=== PATIENT | male | born 1935 | race Caucasian/White ===

== ENCOUNTER 2019-08-15 09:35 | Outpatient (CLI) | payer MEDICARE | END 2019-08-15 23:59 | disposition home or self-care (01) | LOC: ROC 09:35 | PROVIDERS: ATTEND Radiology Radiation Oncology | DX: C34.11 Malignant neoplasm of upper lobe, right bronchus or lung (principal); Z87.891 Personal history of nicotine dependence | CPT/HCPCS: 99214; G0463 ==

== ENCOUNTER 2019-11-15 10:46 | Inpatient (IN) | payer MEDICARE ==
[~2019-11-15] VITALS: Ht 177.8 cm; Wt 82.4 kg
[2019-11-15 10:58] VITALS: BP 100/60
[2019-11-15] MEDS ORDERED: OMEP-110 PO (11:12)
[2019-11-15] MEDS ORDERED: METF500T17 PO (11:12)
[2019-11-15] MEDS ORDERED: PRED20TA PO (11:12)
[2019-11-15] MEDS ORDERED: ALLO300T PO (11:12)
[2019-11-15] MEDS ORDERED: CHLO25TA PO (11:12)
[2019-11-15] MEDS ORDERED: LISI-167 PO (11:12)
[2019-11-15] MEDS ORDERED: FOLI-17 PO (11:12)
[2019-11-15 11:43] LABS: ALBUMIN 3.3 g/dL (3.4-5.0); ANION GAP 5 mmol/L (5-15); CALCIUM 8.8 mg/dL (8.5-10.1); CHLORIDE 106 mmol/L (98-107)
[2019-11-15 11:47] LABS: ALANINE AMINOTRANSFERASE 13 U/L (12-78); ALKALINE PHOSPHATASE 80 U/L (45-117); BILIRUBIN,TOTAL 2.5 mg/dL (0.2-1.0); CREATININE 1.34 mg/dL (0.7-1.3); TOTAL PROTEIN 6.7 g/dL (6.4-8.2)
[2019-11-15 11:54] LABS: MEAN CORPUSCULAR HEMOGLOBIN 34.2 pg (27.5-34.5); MEAN CORPUSCULAR HGB CONC 33.8 g/dL (33.2-36.2); MEAN CORPUSCULAR VOLUME 101.2 fL (81-97); RED BLOOD COUNT 1.96 x10^6/uL (4.38-5.82); RED CELL DISTRIBUTION WIDTH 19.7 % (9.4-14.8)
[2019-11-15 11:58] LABS: HEMOGRAM NOTE RECHECKED
[2019-11-15 11:59] LABS: MEAN PLATELET VOLUME 7.9 fL (7.4-10.4); PLATELET COUNT 87 x10^3/uL (130-400)
[2019-11-15 12:00] LABS: MD YES
[2019-11-15 12:02] LABS: BAND#(MANUAL) 0.03 x10^3/uL; BANDS%(MANUAL) 1 % (0-7); LYMPH#(MANUAL) 0.47 x10^3/uL (1-3.4); LYMPHS% (MANUAL) 18 % (22-44); MONOS#(MANUAL) 0.13 x10^3/uL (0.3-2.7); MONOS% (MANUAL) 5 % (2-9); REACTIVE LYMPHS # (MANUAL) 0.05 x10^3/uL (0-0); REACTIVE LYMPHS % (MANUAL) 2 % (0-0); SEG#(MANUAL) 1.92 x10^3/uL (1.8-6.8); SEGS% (MANUAL) 74 % (42-75)
[2019-11-15 12:03] LABS: ANISOCYTOSIS 1+; OVALOCYTES 1+; ROULEAUX 1+
[2019-11-15 12:04] LABS: <PLATELET ESTIMATE> DECREASED; <PLT MORPHOLOGY> NORMAL PLT MORPH
[2019-11-15] MEDS ORDERED: DEXTROSE 50%, 50ML SYRINGE IVPush PRN (13:00)
[2019-11-15] MEDS ORDERED: DEXTROSE 4 GM TAB.CHEW PO PRN (13:00)
[2019-11-15] MEDS ORDERED: GLUCAGON 1 MG IM PRN (13:00)
[2019-11-15 13:54] VITALS: BP 119/66
[2019-11-15] MEDS ORDERED: DIPHENHYDRAMINE 50 MG CAPSULE PO PRN (14:00)
[2019-11-15] MEDS ORDERED: ACETAMINOPHEN 325 MG TABLET PO ONE (14:00)
[2019-11-15] MEDS ORDERED: MAGNESIUM SULFATE PMX 4GM/100M 100 ML IV ONE (14:30)
[2019-11-15] MEDS ORDERED: POLYETHYLENE GLYCOL 17 GM PACKET PO PRN (14:30)
[2019-11-15] MEDS ORDERED: ONDANSETRON 2MG/ML, 2ML IVPush PRN (14:30)
[2019-11-15] MEDS ORDERED: DOCUSATE 100 MG CAPSULE PO PRN (14:30)
[2019-11-15] MEDS ORDERED: BISACODYL 10 MG SUPP PR PRN (14:30)
[2019-11-15] MEDS ORDERED: ACETAMINOPHEN 325 MG TABLET PO PRN (14:30)
[2019-11-15] MEDS: APIXABAN 5 MG TABLET PO SCH ×2 (15:00→23:46)
[2019-11-15] MEDS: INSULIN LISPRO 100 UNITS/ML, PEN SQ-INSULIN SCH ×2 (15:28→21:46)
[2019-11-15 16:15] VITALS: BP 104/44
[2019-11-15 16:30] VITALS: BP 109/56
[2019-11-15 18:20] VITALS: BP 124/52
[2019-11-15 18:42] VITALS: BP 128/59
[2019-11-15] MEDS: SODIUM CHLORIDE FLUSH 10ML SYR IVF SCH (20:58)
[2019-11-15] MEDS ORDERED: APIXABAN 5 MG TABLET PO SCH (21:00)
[2019-11-15 23:01] LABS: ANION GAP 9 mmol/L (5-15); CHLORIDE 107 mmol/L (98-107)
[2019-11-16 00:07] VITALS: BP 130/86
[2019-11-16 06:16] LABS: CALCIUM 8.6 mg/dL (8.5-10.1); CHLORIDE 105 mmol/L (98-107)
[2019-11-16 06:36] LABS: MEAN CORPUSCULAR HEMOGLOBIN 33.5 pg (27.5-34.5); MEAN CORPUSCULAR HGB CONC 33.9 g/dL (33.2-36.2); MEAN PLATELET VOLUME 8.1 fL (7.4-10.4); PLATELET COUNT 93 x10^3/uL (130-400); RED BLOOD COUNT 2.42 x10^6/uL (4.38-5.82); RED CELL DISTRIBUTION WIDTH 20.1 % (9.4-14.8)
[2019-11-16 06:39] LABS: ALANINE AMINOTRANSFERASE 19 U/L (12-78); ALKALINE PHOSPHATASE 79 U/L (45-117); ANION GAP 8 mmol/L (5-15); BILIRUBIN, DIRECT 0.6 mg/dL (0.1-0.2)
[2019-11-16 06:40] LABS: TOTAL PROTEIN 6.7 g/dL (6.4-8.2)
[2019-11-16 07:27] LABS: BASOPHILS # (AUTO) 0.01 x10^3/uL (0-0.1); BASOPHILS % (AUTO) 0 % (0-1); EOSINOPHILS % (AUTO) 0 % (1-7); LYMPHOCYTES % (AUTO) 20 % (22-44); MD SCAN; MONOCYTES # (AUTO) 0.12 x10^3/uL (0.2-0.8); MONOCYTES % (AUTO) 5 % (2-9); NEUTROPHILS # (AUTO) 1.91 x10^3/uL (1.8-6.8); NEUTROPHILS % (AUTO) 75 % (42-75)
[2019-11-16] MEDS: APIXABAN 5 MG TABLET PO SCH ×2 (07:33→20:23)
[2019-11-16] MEDS: ALLOPURINOL 300 MG TABLET PO SCH (07:33)
[2019-11-16] MEDS: INSULIN LISPRO 100 UNITS/ML, PEN SQ-INSULIN SCH ×4 (07:33→20:29)
[2019-11-16] MEDS: OMEPRAZOLE 20 MG CAPSULE.DR PO SCH (07:33)
[2019-11-16] MEDS: FOLIC ACID 1 MG TABLET PO SCH (07:33)
[2019-11-16] MEDS: LISINOPRIL 10 MG TABLET PO SCH (07:34)
[2019-11-16] MEDS: SODIUM CHLORIDE FLUSH 10ML SYR IVF SCH ×2 (07:34→20:24)
[2019-11-16 08:02] VITALS: BP 132/47
[2019-11-16] MEDS ORDERED: DIPHENHYDRAMINE 50 MG/ML, 1ML IVPush ONE (09:00)
[2019-11-16] MEDS ORDERED: ACETAMINOPHEN 325 MG TABLET PO ONE (09:00)
[2019-11-16] MEDS ORDERED: RITUXIMAB 750 MG in SODIUM CHLORIDE 0.9% 250 ML IV ONE (09:30)
[2019-11-16 14:48] VITALS: BP 149/69
[2019-11-16 20:07] VITALS: BP 118/48
[2019-11-16] MEDS: metFORMIN 500 MG TABLET PO SCH (20:23)
[2019-11-17 01:07] VITALS: BP 131/53
[2019-11-17 05:22] LABS: MEAN CORPUSCULAR HEMOGLOBIN 33.8 pg (27.5-34.5); MEAN CORPUSCULAR HGB CONC 33.5 g/dL (33.2-36.2); MEAN CORPUSCULAR VOLUME 100.7 fL (81-97); MEAN PLATELET VOLUME 7.8 fL (7.4-10.4); PLATELET COUNT 101 x10^3/uL (130-400); RED BLOOD COUNT 2.36 x10^6/uL (4.38-5.82); RED CELL DISTRIBUTION WIDTH 19.4 % (9.4-14.8)
[2019-11-17 05:29] LABS: CHLORIDE 106 mmol/L (98-107)
[2019-11-17 05:35] LABS: ALANINE AMINOTRANSFERASE 13 U/L (12-78); ALBUMIN 3.1 g/dL (3.4-5.0); ALKALINE PHOSPHATASE 72 U/L (45-117); ANION GAP 7 mmol/L (5-15); BILIRUBIN,TOTAL 1.8 mg/dL (0.2-1.0); CALCIUM 8.7 mg/dL (8.5-10.1); CREATININE 0.94 mg/dL (0.7-1.3); TOTAL PROTEIN 6.6 g/dL (6.4-8.2)
[2019-11-17 06:11] LABS: BASOPHILS # (AUTO) 0.01 x10^3/uL (0-0.1); BASOPHILS % (AUTO) 0 % (0-1); EOSINOPHILS % (AUTO) 0 % (1-7); LYMPHOCYTES # (AUTO) 1.11 x10^3/uL (1-3.4); LYMPHOCYTES % (AUTO) 28 % (22-44); MD SCAN; MONOCYTES # (AUTO) 0.23 x10^3/uL (0.2-0.8); MONOCYTES % (AUTO) 6 % (2-9); NEUTROPHILS # (AUTO) 2.61 x10^3/uL (1.8-6.8); NEUTROPHILS % (AUTO) 66 % (42-75)
[2019-11-17] MEDS: INSULIN LISPRO 100 UNITS/ML, PEN SQ-INSULIN SCH ×2 (07:00→11:31)
[2019-11-17 07:32] VITALS: BP 122/61
[2019-11-17] MEDS: ALLOPURINOL 300 MG TABLET PO SCH (07:51)
[2019-11-17] MEDS: OMEPRAZOLE 20 MG CAPSULE.DR PO SCH (07:51)
[2019-11-17] MEDS: APIXABAN 5 MG TABLET PO SCH (07:52)
[2019-11-17] MEDS: metFORMIN 500 MG TABLET PO SCH (07:52)
[2019-11-17] MEDS: FOLIC ACID 1 MG TABLET PO SCH (07:52)
[2019-11-17] MEDS: LISINOPRIL 10 MG TABLET PO SCH (07:52)
[2019-11-17] MEDS: SODIUM CHLORIDE FLUSH 10ML SYR IVF SCH (07:53)
[2019-11-17] MEDS ORDERED: MAGNESIUM SULFATE PMX 2GM/50ML 50 ML IV ONE (09:00)
[2019-11-17] MEDS ORDERED: PRED20TA PO (11:17)
[2019-11-17] MEDS ORDERED: APIX5TAB PO (11:17)
[2019-11-17 12:41] VITALS: BP 118/63
== END 2019-11-17 13:45 | disposition home or self-care (01) | DRG 808 ==
LOC: 4NW 10:50
PROVIDERS: ADMIT Family Medicine; ATTEND Internal Medicine
PROC: 30233N1 Transfusion of Nonautologous Red Blood Cells into Peripheral Vein, Percutaneous Approach (ICD-10-PCS; principal; 2019-11-15)
DX: D59.1 Other autoimmune hemolytic anemias (principal); G93.41 Metabolic encephalopathy; N17.0 Acute kidney failure with tubular necrosis; D61.810 Antineoplastic chemotherapy induced pancytopenia; C90.00 Multiple myeloma not having achieved remission; I82.401 Acute embolism and thrombosis of unspecified deep veins of right lower extremity; C34.11 Malignant neoplasm of upper lobe, right bronchus or lung; E83.42 Hypomagnesemia; M10.9 Gout, unspecified; E11.9 Type 2 diabetes mellitus without complications; E87.5 Hyperkalemia; T45.1X5A Adverse effect of antineoplastic and immunosuppressive drugs, initial encounter; I10 Essential (primary) hypertension; Z87.891 Personal history of nicotine dependence; Z80.9 Family history of malignant neoplasm, unspecified; Z79.84 Long term (current) use of oral hypoglycemic drugs; Z79.01 Long term (current) use of anticoagulants
CPT/HCPCS: 36415; 70450; 80048; 80053; 82248; 82607; 82962; 83010; 83036; 83615; 83735; 84100; 84443; 85014; 85018; 85025; 86850; 86880; 86900; 86923; G0378; J1200; J1815; J3475; J7050; J7512; J9312; P9016

== ENCOUNTER → 2019-12-27 | Outpatient (CLI) | payer MEDICARE ==
[~2019-12-27] MED LIST: ALLO300T PO; APIX5TAB PO; CHLO25TA PO; FOLI-17 PO; LISI-167 PO; METF500T17 PO; OMEP-110 PO; PRED20TA PO
== END | disposition home or self-care (01) ==
LOC: ROC 07:26
PROVIDERS: ATTEND Radiology Radiation Oncology
DX: Z08 Encounter for follow-up examination after completed treatment for malignant neoplasm (principal); E11.9 Type 2 diabetes mellitus without complications; I10 Essential (primary) hypertension; Z85.118 Personal history of other malignant neoplasm of bronchus and lung; Z79.01 Long term (current) use of anticoagulants; Z79.84 Long term (current) use of oral hypoglycemic drugs; Z87.891 Personal history of nicotine dependence
CPT/HCPCS: 99213; G0463

== ENCOUNTER 2020-01-13 10:57 | Inpatient (IN) | payer MEDICARE ==
[~2020-01-13] VITALS: Ht 177.8 cm; Wt 81.0 kg
[2020-01-13] MEDS ORDERED: LENA10CA PO (11:18)
[2020-01-13] MEDS ORDERED: LORA10TA75 PO (11:18)
--- NOTE | 2020-01-13 11:19 | NUR ---
PATIENT BIB [facility] WITH CHIEF C/O DIZZINESS, FATIGUE, AND WEAKNESS. PATIENT HAD GLF YESTERDAY AT HOME AND HIT HIS RIGHT RIBS AND LEFT SIDE OF HEAD. PER PATIENT'S DAUGHTER AT BEDSIDE PATIENT HAD BLOODY NOSE ALL NIGHT. NO OTHER BLEEDING NOTED BY DAUGHTER. PER PATIENT'S DAUGHTER PATIENT HAS MULTIPLE MYELOMA AND STARTED NEW CHEMO MEDICATION LAST TUESDAY, AFTER WHICH PATIENT STARTED EXPERIENCING INCREASING DIZZINESS, WEAKNESS AND FATIGUE. PATIENTS DAUGHTER NOTICED THIS MORNING PATIENT WAS SLIGHTLY ALTERED. PATIENT HAS SMALL ABRASION ON LEFT EYEBROW. NO BRUSING ON RIGHT RIBS BUT VERY TENDER TO TOUCH. 20 GAUGE IV STARTED VIA [facility]. CONNECTED TO ANTENNA ENGINEER, NO SIGNS OF ACUTE DISTRESS. ERMD AT BEDSIDE FOR EVALUATION.
--- NOTE | 2020-01-13 11:20 | NUR ---
PATIENT TO IMAGING.
[2020-01-13] MEDS ORDERED: SODIUM CHLORIDE 0.9% 1,000ML IVBOLUS ONE ×2 (11:30→13:00)
[2020-01-13] MEDS ORDERED: SODIUM CHLORIDE FLUSH 10ML SYR IVF ONE (11:30)
--- NOTE | 2020-01-13 11:54 | NUR ---
PATIENT BACK FROM IMAGING, CONNECTED TO INSTRUMENT PANEL ASSEMBLER, NS BOLUS STARTED, PATIENT WILL TRY TO LEAVE URINE SAMPLE, CALL LIGHT WITHIN REACH.
--- NOTE | 2020-01-13 12:02 | NUR ---
URINE SAMPLE COLLECTED AND SENT TO LAB, PATIENT TO CT SCAN.
[2020-01-13 12:10] LABS: MICROSCOPIC NOT IND
[2020-01-13 12:17] LABS: MEAN CORPUSCULAR HEMOGLOBIN 32.7 pg (27.5-34.5); MEAN PLATELET VOLUME 8.7 fL (7.4-10.4); PLATELET COUNT 102 x10^3/uL (130-400); RED BLOOD COUNT 2.19 x10^6/uL (4.38-5.82)
[2020-01-13 12:20] LABS: INTERNATIONAL NORMALIZED RATIO 1.18 (0.93-1.1); PROTHROMBIN TIME 12.2 Seconds (9.6-11.5)
[2020-01-13 12:22] LABS: ALBUMIN 2.8 g/dL (3.4-5.0); ANION GAP 8 mmol/L (5-15); CALCIUM 8.3 mg/dL (8.5-10.1); CHLORIDE 101 mmol/L (98-107)
--- NOTE | 2020-01-13 12:22 | NUR ---
CRITICAL HCT OF 21.7 REPORTED TO PROVIDER, PATIENT RESTING IN GURNEY, SIDE RAILS UP X2, CONNECTED TO TOOL ROOM ATTENDANT, CALL LIGHT WITHIN REACH, NO SIGNS OF ACUTE DISTRESS.
[2020-01-13 12:25] LABS: AMPHETAMINE SCREEN, URINE Negative (Negative); BARBITURATE SCREEN, URINE Negative (Negative); BENZODIAZEPINE SCREEN, URINE Negative (Negative); CANNABINOID SCREEN, URINE Negative (Negative); COCAINE SCREEN, URINE Negative (Negative); METHADONE SCREEN, URINE Negative (Negative); OPIATE SCREEN, URINE Negative (Negative)
[2020-01-13 12:27] LABS: ALANINE AMINOTRANSFERASE 14 U/L (12-78); ALKALINE PHOSPHATASE 65 U/L (45-117); BILIRUBIN,TOTAL 2.2 mg/dL (0.2-1.0); CREATININE 2.06 mg/dL (0.7-1.3); TROPONIN I < 0.015 ng/mL (0.000-0.045)
[2020-01-13 12:28] LABS: SALICYLATE LEVEL < 1.7 mg/dL (2.8-20.0)
[2020-01-13 12:45] LABS: BASOPHILS # (AUTO) 0.02 x10^3/uL (0-0.1); BASOPHILS % (AUTO) 1 % (0-1); EOSINOPHILS % (AUTO) 0 % (1-7); LYMPHOCYTES # (AUTO) 0.64 x10^3/uL (1-3.4); LYMPHOCYTES % (AUTO) 21 % (22-44); MD SCAN; MONOCYTES # (AUTO) 0.07 x10^3/uL (0.2-0.8); MONOCYTES % (AUTO) 2 % (2-9); NEUTROPHILS # (AUTO) 2.35 x10^3/uL (1.8-6.8); NEUTROPHILS % (AUTO) 76 % (42-75)
--- NOTE | 2020-01-13 12:45 | NUR ---
FLIGHT CREW SCHEDULER AT BEDSIDE.
[2020-01-13] MEDS ORDERED: CEFTRIAXONE PMX 1GM/50ML 50 ML IV ONE (13:00)
[2020-01-13] MEDS ORDERED: CEFTRIAXONE PMX 1GM/50ML 50 ML ONE (13:12)
--- NOTE | 2020-01-13 13:35 | NUR ---
2nd 1 LITER BOLUS STARTED, CORIE DAVID. [facility] [place] AT BEDSIDE FOR EVALUATION.
[2020-01-13] MEDS ORDERED: ACETAMINOPHEN 325 MG TABLET PO PRN (14:30)
[2020-01-13] MEDS ORDERED: ONDANSETRON 2MG/ML, 2ML IVPush PRN (14:30)
[2020-01-13] MEDS ORDERED: ONDANSETRON ODT 4 MG PO PRN (14:30)
[2020-01-13 14:49] VITALS: BP 113/58
[2020-01-13] MEDS ORDERED: VANCOMYCIN PER PHARMACY MC PRN (15:00)
[2020-01-13] MEDS: LACTATED RINGERS 1,000 ML IV SCH (15:12)
--- NOTE | 2020-01-13 15:14 | NUR ---
LATE ENTRY: REPORT CALLED TO ALEX RICHARDS ON MEDICAL TELEMETRY.
--- NOTE | 2020-01-13 15:16 | NUR ---
PATIENT TRANSFERRED IN STABLE CONDITION VIA GURNEY TO MEDICAL TELEMETRY BY [employer] FEEDING MACHINE OPERATOR. ALL PATIENT BELONGINGS GATHERED BY PATIENT'S DAUGHTER AND TAKEN UP TO FLOOR.
[2020-01-13 15:35] VITALS: BP 93/53
[2020-01-13] MEDS: PIPERACILLIN/TAZO/PMX 2.25GM 50 ML IV SCH ×2 (18:09→23:49)
[2020-01-13 18:59] VITALS: BP 110/65
[2020-01-13] MEDS: LINEZOLID PMX 600MG/300ML 300 ML IV SCH (20:24)
[2020-01-14 01:04] VITALS: BP 114/63
[2020-01-14] MEDS: LACTATED RINGERS 1,000 ML IV SCH ×2 (02:55→10:56)
[2020-01-14 06:08] LABS: CHLORIDE 101 mmol/L (98-107)
[2020-01-14 06:12] LABS: ANION GAP 6 mmol/L (5-15); CALCIUM 8.3 mg/dL (8.5-10.1)
[2020-01-14 06:25] LABS: MD YES; MEAN CORPUSCULAR HEMOGLOBIN 31.8 pg (27.5-34.5); MEAN PLATELET VOLUME 9.3 fL (7.4-10.4); PLATELET COUNT 78 x10^3/uL (130-400); RED BLOOD COUNT 2.69 x10^6/uL (4.38-5.82); RED CELL DISTRIBUTION WIDTH 19.5 % (9.4-14.8)
[2020-01-14 06:28] LABS: BAND#(MANUAL) 0.15 x10^3/uL; BANDS%(MANUAL) 6 % (0-7); LYMPH#(MANUAL) 0.73 x10^3/uL (1-3.4); LYMPHS% (MANUAL) 29 % (22-44); METAMYELOCYTES# (MANUAL) 0.05 x10^3/uL (0-0); METAMYELOCYTES% (MANUAL) 2 % (0-1); MONOS% (MANUAL) 4 % (2-9); REACTIVE LYMPHS # (MANUAL) 0.03 x10^3/uL (0-0); REACTIVE LYMPHS % (MANUAL) 1 % (0-0); SEG#(MANUAL) 1.45 x10^3/uL (1.8-6.8); SEGS% (MANUAL) 58 % (42-75)
[2020-01-14 06:37] LABS: <PLATELET ESTIMATE> DECREASED; <PLT MORPHOLOGY> NORMAL PLT MORPH; ANISOCYTOSIS 1+; OVALOCYTES 1+; POLYCHROMASIA 1+
[2020-01-14 06:40] LABS: MICROCYTOSIS 1+
[2020-01-14 06:42] LABS: BASOPHILLIC STIPPLING 1+
[2020-01-14 07:02] VITALS: BP 112/63
[2020-01-14] MEDS: PIPERACILLIN/TAZO/PMX 2.25GM 50 ML IV SCH (07:34)
[2020-01-14] MEDS: LINEZOLID PMX 600MG/300ML 300 ML IV SCH (08:22)
[2020-01-14 12:38] VITALS: BP 95/54
== END 2020-01-14 17:25 | disposition home or self-care (01) | DRG 682 ==
LOC: ED 12:34 → EDIP 14:08 → 4WST 15:18
PROVIDERS: ADMIT Internal Medicine; ATTEND Family Medicine
DX: N17.9 Acute kidney failure, unspecified (principal); J96.01 Acute respiratory failure with hypoxia; G92 Toxic encephalopathy; C90.00 Multiple myeloma not having achieved remission; D61.818 Other pancytopenia; E86.0 Dehydration; R00.0 Tachycardia, unspecified; E11.9 Type 2 diabetes mellitus without complications; Z85.118 Personal history of other malignant neoplasm of bronchus and lung
CPT/HCPCS: 36415; 70450; 80048; 80053; 80307; 81003; 82140; 82962; 83605; 84145; 84484; 85025; 85610; 85730; 86850; 86900; 86923; 87040; 93005; 96361; 96365; 99291; G0378; J0696; J2020; J2543; J7030; J7120; P9040

== ENCOUNTER 2020-01-24 10:49 | Emergency (ER) | payer MEDICARE ==
[~2020-01-24] VITALS: Ht 177.8 cm; Wt 74.6 kg
[~2020-01-24 10:49] MED LIST changes: +LENA10CA PO; +LORA10TA75 PO
[2020-01-24] MEDS ORDERED: SODIUM CHLORIDE 0.9%, 500ML IVBOLUS ONE (11:30)
[2020-01-24 11:38] LABS: ALANINE AMINOTRANSFERASE 11 U/L (12-78); ALBUMIN 2.4 g/dL (3.4-5.0); ANION GAP 9 mmol/L (5-15); CALCIUM 7.5 mg/dL (8.5-10.1); CHLORIDE 105 mmol/L (98-107)
[2020-01-24 11:40] LABS: ALKALINE PHOSPHATASE 77 U/L (45-117); BILIRUBIN,TOTAL 2.7 mg/dL (0.2-1.0); TOTAL PROTEIN 4.7 g/dL (6.4-8.2)
[2020-01-24 11:45] LABS: BASOPHILS % (AUTO) 1 % (0-1); EOSINOPHILS % (AUTO) 0 % (1-7); LYMPHOCYTES % (AUTO) 85 % (22-44); MEAN CORPUSCULAR HEMOGLOBIN 31.5 pg (27.5-34.5); MEAN CORPUSCULAR HGB CONC 33.9 g/dL (33.2-36.2); MEAN PLATELET VOLUME 10.1 fL (7.4-10.4); MONOCYTES % (AUTO) 2 % (2-9); NEUTROPHILS % (AUTO) 11 % (42-75); PLATELET COUNT 50 x10^3/uL (130-400); RED BLOOD COUNT 2.24 x10^6/uL (4.38-5.82); RED CELL DISTRIBUTION WIDTH 18.8 % (9.4-14.8)
[2020-01-24 12:42] LABS: MD SCAN
--- NOTE | 2020-01-24 13:14 | NUR ---
MD AT BEDSIDE TO DISCUSS POC. POC OF NOW TO TRANSFUSE AND D/C. PT ENCOURAGED BY PROVIDER TO NOTIFY RN IF PTS PLAN CHANGES.
--- NOTE | 2020-01-24 13:27 | NUR ---
IN ROOM WITH PT. CONSENT AT BEDSIDE. PUMP AND TUBING IN ROOM. AWAITING BLOOD BANK NOTIFICATION THAT BLOOD IS READY.
--- NOTE | 2020-01-24 13:34 | NUR ---
PT CALL ABBEY ANSWERED. IN ROOM TO GIVE PT URINAL. PT MADE AWARE THAT WE ARE WAITING FOR BLOOD AT THIS TIME.
[2020-01-24 14:21] VITALS: BP 98/43
[2020-01-24 14:48] VITALS: BP 104/43
--- NOTE | 2020-01-24 15:45 | NUR ---
PT OOB TO COMMODE, STANDBY ASSIST CALL LIGHT W/I REACH
[2020-01-24 15:55] VITALS: BP 109/47
--- NOTE | 2020-01-24 15:57 | NUR ---
PT +BM SOFT BROWN. RTD TO BED W/O INCIDENT. BLOOD TRANSFUSION COMPLETED. PT REQUESTING TO BE D/C HOME
--- NOTE | 2020-01-24 16:06 | NUR ---
NOTIFIED PTS , CRISTOPHER THAT SHE CAN COME AND PICK HIM UP
== END 2020-01-24 17:10 | disposition home or self-care (01) ==
LOC: ED 12:19
DX: D64.81 Anemia due to antineoplastic chemotherapy (principal); R55 Syncope and collapse; R42 Dizziness and giddiness; R53.1 Weakness; I10 Essential (primary) hypertension; E11.9 Type 2 diabetes mellitus without complications; Z87.891 Personal history of nicotine dependence
CPT/HCPCS: 36415; 36430; 71045; 80053; 85025; 86850; 86900; 86923; 93005; 99285; J7040; P9040

== ENCOUNTER 2020-05-30 09:44 | Outpatient (CLI) | payer MEDICARE ==
[~2020-05-30 09:44] MED LIST changes: -FOLI-17 PO; +FOLI1TAB32 PO
[2020-05-30 10:22] LABS: MICROSCOPIC NOT IND
[2020-05-30 10:26] LABS: ALBUMIN 3.7 g/dL (3.4-5.0); ANION GAP 6 mmol/L (5-15); CALCIUM 9.5 mg/dL (8.5-10.1); CHLORIDE 104 mmol/L (98-107)
[2020-05-30 10:30] LABS: ALANINE AMINOTRANSFERASE 14 U/L (12-78); ALKALINE PHOSPHATASE 88 U/L (45-117); BILIRUBIN,TOTAL 1.2 mg/dL (0.2-1.0); CREATININE 1.04 mg/dL (0.7-1.3); TOTAL PROTEIN 6.8 g/dL (6.4-8.2)
== END 2020-05-30 23:59 | disposition home or self-care (01) ==
LOC: LAB 09:44
PROVIDERS: ATTEND Anesthesiology
DX: C90.00 Multiple myeloma not having achieved remission (principal); C34.11 Malignant neoplasm of upper lobe, right bronchus or lung; D59.19 Other autoimmune hemolytic anemia; I82.491 Acute embolism and thrombosis of other specified deep vein of right lower extremity; Z79.899 Other long term (current) drug therapy
CPT/HCPCS: 36415; 80053; 81003